=== PATIENT | male | born 1985 | race Caucasian/White ===

== ENCOUNTER 2016-05-06 07:10 | Emergency (ER) | payer OTHER ==
[~2016-05-06] VITALS: Ht 165.1 cm; Wt 97.5 kg
--- NOTE | 2016-05-06 07:10 | NUR ---
Patient was BIBA and taken to bed 01 via gurney per EMS.
[2016-05-06 07:15] VITALS: BP 150/115
[2016-05-06] MEDS ORDERED: NACL 0.9% 1,000 ML IV SCH (07:18)
[2016-05-06] MEDS ORDERED: ONDANSETRON 4 MG/2 ML VIAL IVP ONE (07:20)
--- NOTE | 2016-05-06 07:23 | NUR ---
PATIENT PRESENTS TO ED WITH 31Y M BIBA C/O FIRST TIME SEIZURE WHILE AT HOME, WITNESSED BY FAMILY. NO TRUAMA TO THE TONGUE. 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 ER MD MADE AWARE OF PT STATUS.
--- NOTE | 2016-05-06 07:57 | NUR ---
Patient returned from CT scan. PA student and RN re-evaluating patient at bedside.
[2016-05-06] MEDS ORDERED: PHENYTOIN 1,000 MG in NACL 0.9% 100 ML IV ONE (10:50)
[2016-05-06 11:59] VITALS: BP 121/61
--- NOTE | 2016-05-06 11:59 | NUR ---
DPatient discharged with v/s stable. Written and verbal after care instructions given and explained. Patient alert, oriented and verbalized understanding of instructions. Ambulatory with steady gait. All questions addressed prior to discharge. ID band removed. Patient advised to follow up with PMD. Rx of DILANTIN 300MG given. Patient educated on indication of medication including possible reaction and side effects. Opportunity to ask questions provided and answered.
== END 2016-05-06 11:59 | disposition home or self-care (01) ==
LOC: MED 07:10
DX: R56.9 Unspecified convulsions (principal); I10 Essential (primary) hypertension; Z87.820 Personal history of traumatic brain injury
CPT/HCPCS: 36415; 70450; 71010; 80053; 80185; 81001; 82150; 82553; 83690; 85025; 85610; 85730; 87086; 93005; 96361; 96365; 96375; 99285; J1165; J2405; J7030; Q0092